=== PATIENT | male | born 1970 | race Caucasian/White ===

== ENCOUNTER 2020-07-17 19:55 | Emergency (ER) | payer OTHER, SELFPAY ==
[~2020-07-17] VITALS: Ht 182.9 cm; Wt 80.9 kg
[2020-07-17 19:58] VITALS: BP 104/67
[2020-07-17] MEDS ORDERED: PROPARACAINE OPHTH 0.5%, 15ML ONE (20:06)
[2020-07-17] MEDS ORDERED: FLUORESCEIN OPHTHALMIC 1 MG STRIP ONE (20:06)
[2020-07-17] MEDS ORDERED: SULFAMETH./TRIMETHOPRIM DS 800MG/160MG TABLET PO ONE (20:30)
[2020-07-17] MEDS ORDERED: POLYTRIM OPHTH 10ML LEFTEYE ONE (20:30)
--- NOTE | 2020-07-17 20:39 | NUR ---
Eye drops requested, pharmacy to bring to ed.
== END 2020-07-17 21:18 | disposition home or self-care (01) ==
LOC: ED 21:09
DX: H01.004 Unspecified blepharitis left upper eyelid (principal); H00.014 Hordeolum externum left upper eyelid
CPT/HCPCS: 99283

== ENCOUNTER 2021-01-15 17:04 | Emergency (ER) | payer OTHER ==
[~2021-01-15] VITALS: Ht 182.9 cm; Wt 90.9 kg
[2021-01-15 17:21] VITALS: BP 111/61
--- NOTE | 2021-01-15 17:45 | NUR ---
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
--- NOTE | 2021-01-15 18:33 | NUR ---
Patient given discharge instructions and they have confirmed that they understand the instructions. Patient ambulatory with steady gait.
== END 2021-01-15 18:34 | disposition home or self-care (01) ==
LOC: ED 18:00
DX: H01.004 Unspecified blepharitis left upper eyelid (principal); H01.001 Unspecified blepharitis right upper eyelid; L21.9 Seborrheic dermatitis, unspecified; F17.200 Nicotine dependence, unspecified, uncomplicated
CPT/HCPCS: 99283